=== PATIENT | female | born 1985 | race Caucasian/White ===

== ENCOUNTER → 2016-12-08 | Outpatient (CLI) | payer OTHER ==
[~2016-12-08] MED LIST: FISH1000 PO; METF10004 PO; PRED20TA PO; PRENTAB55 PO; PROAAER10; TESS100C PO; TOPA1TAB PO; ZITHTAB PO
[2016-12-08 16:19] LABS: BASO % 0.4 % (0.0-1.0); EOS # 0.2 K/mm3 (0.0-0.50); EOS % 2.1 % (0.0-3.0); LARGE UNSTAINED CELL # 0.1 K/mm3 (0.0-0.4); LARGE UNSTAINED CELL % 1.5 % (0.0-4.0); LYMPH # 2.3 K/mm3 (1.5-4.5); MEAN CORPUSCULAR HEMOGLOBIN 28.9 pg (27.0-33.0); MEAN CORPUSCULAR HGB CONC 34.9 g/dl (32.0-36.5); MEAN CORPUSCULAR VOLUME 82.9 fl (80.0-96.0); MONO # 0.3 K/mm3 (0.0-0.8); MONO % 4.3 % (0.0-5.0); NEUTROPHILS # 4.9 K/mm3 (1.8-7.7); NEUTROPHILS % 63.7 % (36.0-66.0); PLATELET COUNT, AUTOMATED 367 k/mm3 (150-450); RED CELL DISTRIBUTION WIDTH 13.8 % (11.5-14.5); WHITE BLOOD COUNT 7.8 K/mm3 (4.0-10.0)
[2016-12-08 16:32] LABS: ALBUMIN 3.4 GM/DL (3.2-5.2); ALKALINE PHOSPHATASE 83 U/L (45-117); ALT/SGPT 55 U/L (12-78); ANION GAP 10 MEQ/L (8-16); AST/SGOT 27 U/L (15-37); BILIRUBIN,TOTAL 0.2 MG/DL (0.2-1.0); BLOOD UREA NITROGEN 7 MG/DL (7-18); CALCIUM LEVEL 8.6 MG/DL (8.5-10.1); CARBON DIOXIDE LEVEL 26 MEQ/L (21-32); CHLORIDE LEVEL 104 MEQ/L (98-107); CREATININE FOR GFR 0.62 MG/DL (0.55-1.02); FREE T4 1.06 NG/DL (0.76-1.46); GLOMERULAR FILTRATION RATE > 60.0 (>60); GLUCOSE, FASTING 124 MG/DL (70-105); POTASSIUM SERUM 4.3 MEQ/L (3.5-5.1); SODIUM LEVEL 140 MEQ/L (136-145); TOTAL PROTEIN 6.8 GM/DL (6.4-8.2)
[2016-12-08 17:14] LABS: ERYTHROCYTE SEDIMENTATION RATE 37 mm/hr (0-20)
== END ==
LOC: M LAB 15:20
PROVIDERS: ATTEND Physician Assistant Medical
DX: R19.7 Diarrhea, unspecified (principal)

== ENCOUNTER → 2016-12-09 | Outpatient (REF) | payer OTHER | LOC: M LAB REF 10:05 | PROVIDERS: ATTEND Physician Assistant Medical | DX: R19.7 Diarrhea, unspecified (principal) ==

== ENCOUNTER → 2016-12-11 | Outpatient (CLI) | payer OTHER ==
[~2016-12-11] MED LIST changes: +E-Z-PAQUE 96% w/w SUSP 176GM BTL As Ordered ONE
--- NOTE | 2016-12-11 16:44 | REP ---
Small bowel follow-through The procedure was performed under the direct supervision of Dr. Barrientos. The images were reviewed with Dr. Barrientos. The acute care registered nurse film shows no organomegaly or pathological masses. The intestinal gas pattern is nonspecific. Liquid barium was administered and the barium column was followed through the small bowel to the level of the terminal ileum. Small bowel transit time is approximately 30 minutes . During fluoroscopy gentle palpation shows all loops are freely movable and pliable. There are no fixed or angulated loops. The small bowel mucosal pattern is normal in course and caliber. There is no transition to suggest a partial small bowel obstruction. Spot filming of the terminal ileum shows it to be unremarkable. Impression: Small bowel follow-through examination within normal limits. 1 minute and 2 seconds of fluoro time was utilized for this procedure. Reviewed by KIMBERLY Colindres 12/11/2016 04:24 PSigned by Devonte Barrientos MD 12/11/2016 04:35 P
== END ==
LOC: M RAD 09:47 → EDUNIT# 10:00
PROVIDERS: ATTEND Physician Assistant Medical
DX: R19.7 Diarrhea, unspecified (principal); R10.84 Generalized abdominal pain

== ENCOUNTER 2016-12-24 12:11 | Outpatient (CLI) | payer OTHER ==
[~2016-12-24] VITALS: Ht 162.6 cm; Wt 129.7 kg
[~2016-12-24 12:11] MED LIST changes: -E-Z-PAQUE 96% w/w SUSP 176GM BTL As Ordered ONE; -FISH1000 PO; +NS 1,000 ML IV ONE; -PRED20TA PO; -PROAAER10; -TESS100C PO; -ZITHTAB PO
[2016-12-24] MEDS ORDERED: LIDOCAINE 2% INJ 100 MG/5 ML SDV (FOR ANES.) As Ordered ONE ×2 (15:23→15:35)
[2016-12-24] MEDS ORDERED: PROPOFOL 200 MG/20 ML VIAL As Ordered ONE ×3 (15:23→15:38)
--- NOTE | 2016-12-24 15:34 | ROOR ---
Patient Name: Florence Calzada Procedure Date: 12/24/2016 3:22 PM Date of : 1985 Age: 31 Room: [facility] Gender: Female Note Status: Finalized Procedure: Upper GI endoscopy Indications: Abdominal pain Providers: Guero LAM MD Referring MD: KELLY MENDOZA MD Requesting Provider: Medicines: Monitored Anesthesia Care Complications: No immediate complications. Procedure: Pre-Anesthesia Assessment: - The heart rate, respiratory rate, oxygen saturations, blood pressure, adequacy of pulmonary ventilation, and response to care were monitored throughout the procedure. The Endoscope was introduced through the mouth, and advanced to the second part of duodenum. The upper GI endoscopy was accomplished without difficulty. The patient tolerated the procedure well. Findings: The esophagus was normal. The stomach was normal. The examined duodenum was normal. Impression: - Normal esophagus. - Normal stomach with a small (insignificant) hiatal hernia. - Normal examined duodenum. - No specimens collected. Recommendation: - Continue present medications. Guero Lam MD Guero LAM MD 12/24/2016 3:33:50 PM This report has been signed electronically. Number of Addenda: 0 Note Initiated On: 12/24/2016 3:22 PM Estimated Blood Loss: Estimated blood loss: none.
--- NOTE | 2016-12-24 15:52 | ROOR ---
Patient Name: Florence Calzada Procedure Date: 12/24/2016 3:23 PM Date of : 1985 Age: 31 Room: [facility] Gender: Female Note Status: Finalized Procedure: Colonoscopy Indications: Generalized abdominal pain, Clinically significant diarrhea of unexplained origin, Exclusion of Crohn's disease Providers: Guero LAM MD Referring MD: KELLY MENDOZA MD Requesting Provider: Medicines: Monitored Anesthesia Care Complications: No immediate complications. Procedure: Pre-Anesthesia Assessment: - The heart rate, respiratory rate, oxygen saturations, blood pressure, adequacy of pulmonary ventilation, and response to care were monitored throughout the procedure. The Colonoscope was introduced through the anus and advanced to 8 cm into the ileum. The colonoscopy was performed without difficulty. The patient tolerated the procedure well. The quality of the bowel preparation was good. Findings: The perianal and digital rectal examinations were normal. The terminal ileum contained a single erosion. This was biopsied with a cold forceps for histology. The entire examined colon appeared normal on direct and retroflexion views. Biopsies for histology were taken with a cold forceps from the entire colon for evaluation of microscopic colitis. Impression: - A single tiny erosion in the terminal ileum of dubious significance. Biopsied. - The entire examined colon is normal on direct and retroflexion views. - Biopsies were taken with a cold forceps from the entire colon for evaluation of microscopic colitis. - (Irritable Bowel Syndrome/IBS suspected.) Recommendation: - Await pathology results. - Telephone endoscopist for pathology results in 2 weeks. - Use Bentyl (dicyclomine) 20 mg PO QID 30 min AC. - (the script was sent to your pharmacy on file) Guero Lam MD Guero LAM MD 12/24/2016 3:52:30 PM This report has been signed electronically. Number of Addenda: 0 Note Initiated On: 12/24/2016 3:23 PM Estimated Blood Loss: Estimated blood loss: none.
[2016-12-24 16:10] VITALS: BP 158/66
== END 2016-12-24 16:28 | disposition home or self-care (01) ==
LOC: M OPP 12:11
PROVIDERS: ATTEND Internal Medicine Gastroenterology
DX: K50.10 Crohn's disease of large intestine without complications (principal); K44.9 Diaphragmatic hernia without obstruction or gangrene; I10 Essential (primary) hypertension; E11.9 Type 2 diabetes mellitus without complications; E28.2 Polycystic ovarian syndrome; G43.909 Migraine, unspecified, not intractable, without status migrainosus; R06.83 Snoring; Z79.899 Other long term (current) drug therapy; Z79.84 Long term (current) use of oral hypoglycemic drugs

== ENCOUNTER 2017-03-03 08:13 | Emergency (ER) | payer OTHER ==
[~2017-03-03 08:13] MED LIST changes: -NS 1,000 ML IV ONE
[2017-03-03] MEDS ORDERED: TESS100C PO (08:26)
[2017-03-03] MEDS ORDERED: FISH1000 PO (08:26)
[2017-03-03] MEDS ORDERED: methylPREDNISolone INJ 125 MG/2 ML VIAL (J2930) IV ONE (08:45)
[2017-03-03] MEDS ORDERED: IPRATROPIUM 0.5MG/ALBUTEROL 2.5MG INH SOL UD 3ML (DUONEB)(J7620) NEB ONE (08:45)
[2017-03-03] MEDS ORDERED: ALBUTEROL SULFATE 2.5 MG/0.5 ML INH NEB SOLN INH ONE (08:45)
--- NOTE | 2017-03-03 08:58 | ECGEPIP ---
Stationary ECG Study [facility] - ED Test Date: 2017-03-03 Pat Name: DEN ESTRADA Department: Room: - Gender: F Public Relations Representative: AF : 1985 Requested By: Amish Onofre Order Number: [id number] Reading MD: Jeffrey Bland Measurements Intervals [place] Rate: 93 P: 24 HI: 164 QRS: 7 QRSD: 89 T: -3 QT: 331 QTc: 413 Interpretive Statements SINUS RHYTHM NSTTW ABNORMALITIES POSSIBLE PRIOR INFERIOR INFARCT NO PRIORS Electronically Signed On 03-03-2017 8:58:09 EDT by Jeffrey Bland
[2017-03-03 09:21] LABS: BASO % 0.4 % (0.0-1.0); EOS # 0.2 10^3/uL (0.0-0.50); IMMATURE GRANULOCYTE % 0.5 % (0-0); LYMPH # 2.5 10^3/uL (1.5-4.5); LYMPH % 25.8 % (24.0-44.0); MEAN CORPUSCULAR HEMOGLOBIN 27.9 pg (27.0-33.0); MEAN CORPUSCULAR HGB CONC 34.3 g/dl (32.0-36.5); MEAN CORPUSCULAR VOLUME 81.1 fl (80.0-96.0); MONO # 0.4 10^3/uL (0.0-0.8); MONO % 4.5 % (0.0-5.0); NEUTROPHILS # 6.5 10^3/uL (1.8-7.7); NEUTROPHILS % 66.8 % (36.0-66.0); PLATELET COUNT, AUTOMATED 349 10^3/uL (150-450); RED CELL DISTRIBUTION WIDTH 14.2 % (11.5-14.5); WHITE BLOOD COUNT 9.7 10^3/uL (4.0-10.0)
[2017-03-03 09:24] LABS: ADD MANUAL DIFFER NO; DIFF SLIDE NUMBER 141
[2017-03-03 09:37] LABS: CONTROL LINE HCG INT CTR LINE PRESENT
[2017-03-03 09:46] LABS: ALBUMIN 3.4 GM/DL (3.2-5.2); ALBUMIN/GLOBULIN RATIO 0.87 (1.00-1.93); ALKALINE PHOSPHATASE 91 U/L (45-117); ALT/SGPT 58 U/L (12-78); ANION GAP 10 MEQ/L (8-16); AST/SGOT 25 U/L (15-37); BILIRUBIN,DIRECT < 0.1 MG/DL (0.0-0.2); BILIRUBIN,TOTAL 0.2 MG/DL (0.2-1.0); BLOOD UREA NITROGEN 8 MG/DL (7-18); CALCIUM LEVEL 8.6 MG/DL (8.5-10.1); CARBON DIOXIDE LEVEL 19 MEQ/L (21-32); CHLORIDE LEVEL 109 MEQ/L (98-107); CREATININE FOR GFR 0.77 MG/DL (0.55-1.02); GLOMERULAR FILTRATION RATE > 60.0 (>60); GLUCOSE, FASTING 142 MG/DL (70-105); POTASSIUM SERUM 3.6 MEQ/L (3.5-5.1); SODIUM LEVEL 138 MEQ/L (136-145); TOTAL PROTEIN 7.3 GM/DL (6.4-8.2)
[2017-03-03] MEDS ORDERED: NS 1,000 ML IV ONE (10:00)
--- NOTE | 2017-03-03 10:31 | REP ---
PA and lateral chest: There are no comparisons. The lung valdez are clear. The cardiac size is normal The ariella, mediastinum, and bony thorax are unremarkable. Impression: Negative PA and lateral chest. Signed by Jake Navarro MD 03/03/2017 10:23 A
[2017-03-03] MEDS ORDERED: ZITHTAB PO (10:40)
[2017-03-03] MEDS ORDERED: PRED20TA PO (10:40)
[2017-03-03 10:55] VITALS: BP 130/69
== END 2017-03-03 10:57 | disposition home or self-care (01) ==
LOC: M ED 08:13
DX: J40 Bronchitis, not specified as acute or chronic (principal); I10 Essential (primary) hypertension; F41.9 Anxiety disorder, unspecified; Z79.899 Other long term (current) drug therapy; Z88.8 Allergy status to other drugs, medicaments and biological substances; Z87.891 Personal history of nicotine dependence
CPT/HCPCS: 71020; 80048; 80076; 82550; 82553; 83880; 84703; 85025; 85379; 87040; 87077; 87186; 87798; 87804; 93005; 93041; 94640; 94760; 96374; 99284; J2930

== ENCOUNTER 2017-03-08 11:59 | Emergency (ER) | payer OTHER ==
[~2017-03-08] VITALS: Ht 162.6 cm; Wt 125.0 kg
[~2017-03-08 11:59] MED LIST changes: +FISH1000 PO; +PRED20TA PO; +TESS100C PO; +ZITHTAB PO
[2017-03-08] MEDS ORDERED: PROAAER10 (12:17)
[2017-03-08] MEDS ORDERED: LORazepam 1 MG TAB PO STA (12:36)
[2017-03-08] MEDS: IPRATROPIUM 0.5MG/ALBUTEROL 2.5MG INH SOL UD 3ML (DUONEB)(J7620) NEB SCH ×3 (13:02→13:04)
[2017-03-08 13:31] LABS: ABG HCO3 17.9 MEQ/L (22.0-26.0); ABG PARTIAL PRESSURE CO2 25.4 mmHg (35.0-45.0); ABG PARTIAL PRESSURE O2 242.2 mmHg (75.0-100.0); ABG STANDARD HCO3 21.2 MEQ/L (22.0-26.0); ABG TOTAL CO2 18.7 MEQ/L (22.0-29.0); ABG pH (ARTERIAL) 7.467 UNITS (7.350-7.450)
[2017-03-08] MEDS ORDERED: LORazepam 2 MG/ML VIAL (J2060) IV STA (14:33)
[2017-03-08] MEDS ORDERED: ISOVUE-370 76% 100ML VIAL (Q9967) As Ordered ONE (14:39)
[2017-03-08] MEDS ORDERED: KETOROLAC 30 MG/ML VIAL (J1885) IV ONE (14:45)
--- NOTE | 2017-03-08 16:20 | REP ---
CT ANGIOGRAM CHEST: 03/08/2017. Comparison: Chest x-ray 03/03/2017. Technique: The patient received a bolus of Isovue 370, 75 ml with our pulmonary angiogram protocol. Clinical history: Pleuritic chest pain in a 31-year-old female with diabetes. Findings: Helical scanning through the chest shows the lung valdez well inflated. I see no pleural thickening, calcified pleural plaque or pleural-based mass. No effusion. There is no pneumothorax or pneumomediastinum. There is no pulmonary nodule, acute infiltrate or atelectasis. Heart is not enlarged. There is no pericardial thickening or effusion. The aorta is without aneurysm or dissection. I see no pathologic sized mediastinal or hilar adenopathy. The main, right and left pulmonary arteries are without filling defects. Lobar and segmental arteries are also without filling defects or vessel cutoff. Subsegmental arteries are not well visualized on this study. No pathologic sized mediastinal or hilar adenopathy. There are fat replaced axillary nodes, which are not enlarged. No supraclavicular mass. Thyroid lobes unremarkable. Bone windows show sternum, manubrium, clavicles, AC joints, glenohumeral joints, humeral heads, scapulae, ribs and thoracic spine without compression deformity or destructive lesion. Posterior elements intact. In the upper abdomen, fatty change noted in the liver. The spleen seen only in part, but is not enlarged. That portion of liver visible does not suggest gross hepatomegaly, but again only seen in part. Adrenal glands intact. The body and tail of the pancreas intact. Only the upper pole of the left kidney seen and unremarkable. No hiatal hernia. Impression: 1. There is no CT evidence of pulmonary thromboembolism, effusion, infiltrate, atelectasis, pneumothorax or pneumomediastinum. 2. No pathologic sized mediastinal or hilar adenopathy. There is no aortic aneurysm or dissection. 3. The bony chest was unremarkable. 4. Fatty liver change but the upper abdominal region otherwise unremarkable. Signed by Aj Marcum MD 03/08/2017 05:26 P
[2017-03-08] MEDS ORDERED: TESS100C PO ×2 (17:21→17:36)
[2017-03-08 17:39] VITALS: BP 150/89
== END 2017-03-08 17:40 | disposition home or self-care (01) ==
LOC: M ED 11:59 → EDBD 11:59 → EDSEX 11:59 → M ED 17:40
DX: R05 Cough (principal); F41.9 Anxiety disorder, unspecified; I10 Essential (primary) hypertension; Z79.899 Other long term (current) drug therapy; Z88.8 Allergy status to other drugs, medicaments and biological substances; F17.210 Nicotine dependence, cigarettes, uncomplicated
CPT/HCPCS: 36600; 71275; 82803; 87486; 87581; 87633; 87798; 94640; 96374; 96375; 99284; J1885; J2060; Q9967

== ENCOUNTER 2017-10-19 18:42 | Emergency (ER) | payer OTHER | END 2017-10-19 20:40 | disposition left against medical advice (07) | LOC: M ED 18:42 | DX: Z53.29 Procedure and treatment not carried out because of patient's decision for other reasons (principal) ==

== ENCOUNTER 2018-05-31 11:44 | Emergency (ER) | payer OTHER ==
[~2018-05-31] VITALS: Ht 162.6 cm; Wt 131.7 kg
[~2018-05-31 11:44] MED LIST changes: +PROAAER10
[2018-05-31] MEDS ORDERED: ADV500INH INH (11:53)
[2018-05-31] MEDS ORDERED: FROV2.5T4 PO (11:53)
[2018-05-31] MEDS ORDERED: OMEP20CA3 PO (11:53)
[2018-05-31] MEDS ORDERED: LISINOPRIL-HCTZ (11:54)
[2018-05-31] MEDS ORDERED: FEXO180T58 (11:54)
[2018-05-31] MEDS ORDERED: ONDANSETRON 4MG/2ML VIAL (J2405) IV ONE (12:15)
[2018-05-31] MEDS: MORPHINE 4 MG/ML 1ML VIAL/SYRINGE (J2270) IV PRN ×2 (12:25→13:18)
[2018-05-31 12:31] LABS: BASO # 0.1 10^3/uL (0.0-0.2); BASO % 0.5 % (0.0-1.0); EOS # 0.2 10^3/uL (0.0-0.50); EOS % 1.4 % (0.0-3.0); HEMATOCRIT 38.7 % (36.0-47.0); HEMOGLOBIN 13.3 g/dl (12.0-15.5); LYMPH # 2.5 10^3/uL (1.5-4.5); LYMPH % 23.8 % (24.0-44.0); MEAN CORPUSCULAR HEMOGLOBIN 28.9 pg (27.0-33.0); MEAN CORPUSCULAR HGB CONC 34.4 g/dl (32.0-36.5); MEAN CORPUSCULAR VOLUME 83.9 fl (80.0-96.0); MONO # 0.5 10^3/uL (0.0-0.8); MONO % 4.9 % (0.0-5.0); NEUTROPHILS # 7.2 10^3/uL (1.8-7.7); NEUTROPHILS % 68.7 % (36.0-66.0); PLATELET COUNT, AUTOMATED 370 10^3/uL (150-450); RED BLOOD COUNT 4.61 10^6/uL (4.00-5.40); WHITE BLOOD COUNT 10.5 10^3/uL (4.0-10.0)
[2018-05-31 12:42] LABS: BILIRUBIN, URINE MANUAL NEGATIVE (NEGATIVE); GLUCOSE, URINE (UA) MANUAL NEGATIVE (NEGATIVE); KETONE, URINE MANUAL NEGATIVE (NEGATIVE); UROBILINOGEN, URINE MANUAL NORMAL (NORMAL)
[2018-05-31 12:49] LABS: BACTERIA, URINE NONE SEEN; HYALINE CAST, URINE NONE SEEN /lpf (0-1); RBC, URINE 30-40 /hpf (0-3); SQUAMOUS EPITHELIAL CELL URINE SMALL AMOUNT /hpf (SMALL AMT)
[2018-05-31 13:02] LABS: HCG, SERUM QUALITATIVE NEGATIVE (NEGATIVE)
[2018-05-31 13:11] LABS: ALBUMIN 3.7 GM/DL (3.2-5.2); ALT/SGPT 73 U/L (12-78); BILIRUBIN,DIRECT < 0.1 MG/DL (0.0-0.2); BILIRUBIN,TOTAL 0.2 MG/DL (0.2-1.0); BLOOD UREA NITROGEN 11 MG/DL (7-18); CALCIUM LEVEL 9.5 MG/DL (8.5-10.1); CARBON DIOXIDE LEVEL 21 MEQ/L (21-32); CHLORIDE LEVEL 106 MEQ/L (98-107); CREATININE FOR GFR 0.74 MG/DL (0.55-1.30); GLOMERULAR FILTRATION RATE > 60.0 (>60); GLUCOSE, FASTING 161 MG/DL (70-100); LIPASE 191 U/L (73-393); POTASSIUM SERUM 3.8 MEQ/L (3.5-5.1); SODIUM LEVEL 138 MEQ/L (136-145); TOTAL PROTEIN 7.2 GM/DL (6.4-8.2)
[2018-05-31] MEDS ORDERED: ISOVUE-370 76% 100ML VIAL (Q9967) As Ordered ONE (13:32)
--- NOTE | 2018-05-31 14:14 | REP ---
CT ABDOMEN AND PELVIS WITH IV BUT WITHOUT ORAL CONTRAST: HISTORY: Right lower quadrant pain. Question incarcerated hernia. CT CONTRAST DOSE: 100 mL of intravenous Isovue [address] FINDINGS: Preliminary digital box toe cutter radiograph demonstrates an unremarkable bowel gas pattern. An IUD is noted in the central pelvis. On axial CT images, the lung bases are clear. There is moderate to marked diffuse fatty infiltration of the liver. No focal liver mass lesion is appreciated. There are areas of fat sparing near the gallbladder. A tiny accessory splenule is noted adjacent to the pancreatic tail. The spleen is otherwise normal in size and texture. No adrenal lesion is seen. No pancreatic abnormality is observed. There is evidence of a descending duodenal diverticulum. No retroperitoneal mass or adenopathy is seen. There is an intrarenal calculus in the lower pole of the left kidney which measures 10 mm. No hydronephrosis is seen. There is some renal parenchymal scarring along the mid pole of the left kidney with adjacent parenchymal focal calcification. There is no evidence of hydronephrosis or intrarenal calculus on the right. The kidneys are otherwise unremarkable. The appendix is surgically absent. An IUD is seen in good position in the uterus. No ovarian or uterine abnormality is seen. No pelvic adenopathy is seen. No significant abdominal wall defect is seen. No bony destructive lesion is noted. IMPRESSION: Intrarenal nephrolithiasis lower pole left kidney without hydronephrosis. Focal scarring left mid kidney. Moderate to marked diffuse fatty infiltration of the liver. IUD in place in good position in the uterus. Post appendectomy. No acute intra-abdominal or pelvic abnormality seen. Electronically Signed by Devonte Barrientos MD 05/31/2018 04:42 P
[2018-05-31 14:41] VITALS: BP 129/76
== END 2018-05-31 14:42 | disposition home or self-care (01) ==
LOC: M ED 11:44
DX: R10.31 Right lower quadrant pain (principal); R11.0 Nausea; I10 Essential (primary) hypertension; K58.9 Irritable bowel syndrome, unspecified; F41.9 Anxiety disorder, unspecified; R51 Headache; Z87.891 Personal history of nicotine dependence; Z88.8 Allergy status to other drugs, medicaments and biological substances; Z79.899 Other long term (current) drug therapy; Z79.84 Long term (current) use of oral hypoglycemic drugs; Z79.51 Long term (current) use of inhaled steroids
CPT/HCPCS: 74177; 80048; 80076; 81000; 83690; 84703; 85025; 96374; 96375; 96376; 99284; J2270; J2405; Q9967

== ENCOUNTER 2019-04-04 08:14 | Day surgery (SDC) | payer OTHER ==
[~2019-04-04] VITALS: Ht 162.6 cm; Wt 86.2 kg
[~2019-04-04 08:14] MED LIST changes: +ADV500INH INH; +CYAN100050 PO; +FEXO180T58 PO; +FROV2.5T4 PO; +LIDOCAINE 2% INJ 100 MG/5 ML SDV (FOR ANES.) As Ordered ONE; +LISINOPRIL-HCTZ; +LR 1,000 ML IV ONE; +MIDAZOLAM INJ 2 MG/2 ML VIAL (J2250) As Ordered ONE; +OMEP20CA4 PO; +OMEP40CA97 PO; +ONE-1TAB PO; +PROPOFOL 200 MG/20 ML VIAL As Ordered ONE; +fentaNYL 100 MCG/2 ML INJECTION (J3010) As Ordered ONE
[2019-04-04 08:54] LABS: HEMATOCRIT 40.5 % (36.0-47.0); HEMOGLOBIN 13.8 g/dl (12.0-15.5)
[2019-04-04] MEDS ORDERED: LIDOCAINE W/EPINEPHRINE 1% 20ML VIAL As Ordered ONE (09:01)
[2019-04-04] MEDS ORDERED: IODINE STRONG SOLN 15 ML BTL As Ordered ONE (09:01)
[2019-04-04 09:13] LABS: HCG, SERUM QUALITATIVE NEGATIVE (NEGATIVE)
[2019-04-04] MEDS ORDERED: METOCLOPRAMIDE INJ 10MG/2ML VIAL (J2765) As Ordered ONE (09:58)
[2019-04-04] MEDS ORDERED: KETOROLAC 60 MG/2 ML VIAL (J1885) As Ordered ONE (09:58)
[2019-04-04] MEDS ORDERED: ONDANSETRON 4MG/2ML VIAL (J2405) As Ordered ONE (09:58)
[2019-04-04] MEDS ORDERED: METOCLOPRAMIDE INJ 10MG/2ML VIAL (J2765) IV PRN (11:15)
[2019-04-04] MEDS ORDERED: fentaNYL 100 MCG/2 ML INJECTION (J3010) IV PRN (11:15)
[2019-04-04] MEDS ORDERED: oxyCODONE 5MG TAB PO PRN (11:15)
[2019-04-04] MEDS ORDERED: MEPERIDINE INJ 25 MG/ML VIAL (J2175) IV PRN (11:15)
[2019-04-04] MEDS ORDERED: LR 1,000 ML IV SCH (11:15)
[2019-04-04] MEDS ORDERED: ONDANSETRON 4MG/2ML VIAL (J2405) IV PRN (11:15)
--- NOTE | 2019-04-04 11:37 | RO ---
DATE OF OPERATION: 04/04/2019 STAFF SURGEON: Karissa Parada MD, clinical service gynecology [employer]CE[employer] LIFEGUARD SPECIALIST: INDICATIONS FOR OPERATION: Florence is a 33-year-old G9, P2-0-7-2 who had a history of prior normal Pap smears with positive human papillomavirus (HPV) testing. On colposcopy recently, she was noted to have a high-grade squamous intraepithelial lesion, high-grade squamous intraepithelial lesion (HGSIL), and she was counseled regarding treatment of the lesion so that there is no further progression. Given her level in anxiety, she requested that the procedure be done in the operating room, which was also a good idea for the patient given that her anatomy made the procedure more prudent to be done in the operating room, given that her cervix was rather large. 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 MATERIAL FORWARDED TO THE LABORATORY FOR EXAMINATION: Four specimens: 1. Right LEEP. 2. Left LEEP. 3. Deep LEEP superior. 4. Deep LEEP inferior. INFECTION CLASSIFICATION: 2. ESTIMATED BLOOD LOSS: 5 mL. INTRAVENOUS (IV) FLUIDS: 700 mL of lactated Ringer. URINE OUTPUT: Not measured. OPERATION PERFORMED: Loop electrosurgical excision procedure (LEEP). DESCRIPTION OF OPERATION: After obtaining informed consent, the patient was taken to the operating room, where she underwent general anesthesia, and she was placed in low lithotomy position. Perineum and vagina were prepped and draped in sterile fashion. A coated speculum was inserted into the vagina. There was good visualization of the cervix after the sidewall retractor was also placed within the vagina surrounding the cervix. Her cervix notably is rather large. Lugol solution was placed over the surface of the cervix, and there was a nonstaining portion in the center noted. 10 mL of 1% lidocaine with epinephrine was injected for an intracervical block. The LEEP was then completed in four passes. She had Mirena strings present for her Mirena intrauterine device (IUD), and I took great care to not contact the strings with the cautery during the procedure so that her IUD would still be in place with good length of the strings. The four passes of the LEEP were as follows: right LEEP, left LEEP, deep superior LEEP, and deep inferior LEEP. Then, cautery was applied to the LEEP bed using a rollerball, and there was complete hemostasis. Monsel solution was applied afterwards, and I inspected the strings and noted that they were still intact. The patient tolerated the procedure well. Specimens were sent to pathology. Everything was removed from the vagina to include the sidewall retractor and the speculum. The patient was awakened from anesthesia and transferred to the recovery room in good condition. All counts were correct times two. Time-out had been performed prior to the procedure, and the team was in agreement.
[2019-04-04 11:45] VITALS: BP 142/91
== END 2019-04-04 11:57 | disposition home or self-care (01) ==
LOC: M SDC 08:14
PROVIDERS: ATTEND Obstetrics & Gynecology
DX: N87.1 Moderate cervical dysplasia (principal); D06.0 Carcinoma in situ of endocervix; B97.7 Papillomavirus as the cause of diseases classified elsewhere; G43.909 Migraine, unspecified, not intractable, without status migrainosus; Z98.84 Bariatric surgery status; L40.50 Arthropathic psoriasis, unspecified; F41.9 Anxiety disorder, unspecified; E11.9 Type 2 diabetes mellitus without complications; E28.2 Polycystic ovarian syndrome; Z87.440 Personal history of urinary (tract) infections; F17.290 Nicotine dependence, other tobacco product, uncomplicated; Z88.8 Allergy status to other drugs, medicaments and biological substances; Z79.899 Other long term (current) drug therapy
CPT/HCPCS: 36415; 57522; 84703; 85014; 85018; 86850; 86900; 86901; 88307; J1885; J2250; J2405; J2765; J3010

== ENCOUNTER 2020-07-26 14:52 | Emergency (ER) | payer OTHER ==
[~2020-07-26] VITALS: Ht 162.6 cm; Wt 76.9 kg
[~2020-07-26 14:52] MED LIST changes: -LIDOCAINE 2% INJ 100 MG/5 ML SDV (FOR ANES.) As Ordered ONE; -LR 1,000 ML IV ONE; -MIDAZOLAM INJ 2 MG/2 ML VIAL (J2250) As Ordered ONE; +OMEP1CAP73 PO; -OMEP20CA4 PO; -PROPOFOL 200 MG/20 ML VIAL As Ordered ONE; -fentaNYL 100 MCG/2 ML INJECTION (J3010) As Ordered ONE
[2020-07-26 14:53] VITALS: BP 143/94
[2020-07-26 17:10] LABS: BASO % 0.4 % (0.0-1.0); EOS # 0.1 10^3/uL (0.0-0.5); EOS % 1.1 % (0.0-3.0); HEMATOCRIT 39.6 % (36.0-47.0); HEMOGLOBIN 13.8 g/dl (12.0-15.5); LYMPH # 2.7 10^3/uL (1.5-5.0); LYMPH % 30.3 % (24.0-44.0); MEAN CORPUSCULAR HEMOGLOBIN 30.2 pg (27.0-33.0); MEAN CORPUSCULAR HGB CONC 34.8 g/dl (32.0-36.5); MEAN CORPUSCULAR VOLUME 86.7 fl (80.0-96.0); MONO # 0.4 10^3/uL (0.0-0.8); MONO % 4.8 % (2.0-8.0); NEUTROPHILS # 5.6 10^3/uL (1.5-8.5); NEUTROPHILS % 63.1 % (36.0-66.0); PLATELET COUNT, AUTOMATED 320 10^3/uL (150-450); RED BLOOD COUNT 4.57 10^6/uL (4.00-5.40); WHITE BLOOD COUNT 8.9 10^3/uL (4.0-10.0)
[2020-07-26] MEDS ORDERED: HYDR-3713 PO (17:28)
== END 2020-07-26 17:38 | disposition home or self-care (01) ==
LOC: M ED 14:52
DX: N64.4 Mastodynia (principal); E11.9 Type 2 diabetes mellitus without complications; Z98.84 Bariatric surgery status; Z79.899 Other long term (current) drug therapy; Z88.8 Allergy status to other drugs, medicaments and biological substances; F17.210 Nicotine dependence, cigarettes, uncomplicated

== ENCOUNTER → 2020-08-01 | Outpatient (CLI) | payer OTHER ==
[~2020-08-01] MED LIST changes: +HYDR-3713 PO
--- NOTE | 2020-08-01 14:22 | REPMRS ---
Patient History The patient states she had a clinical breast exam in July 2020. Taking hormonal contraceptives for 2 years 3 months. Diagnostic Bilateral Mammo: August 01, 2020 - Exam #: [id number] Bilateral CC and MLO view(s) were taken. Technologist: Yamilet Ambriz, Technologist No prior studies available for comparison. FINDINGS: There are scattered fibroglandular densities. The Volpara volumetric breast density category is: B. There is no evidence of dominant mass, architectural distortion, or grouped microcalcification typical of malignancy. 3-D tomosynthesis shows no additional findings. Assessment: BI-RADS/ACR category 1 mammogram. Negative Mammogram. Recommendation Routine screening mammogram of both breasts in 1 year (for women over age 40). This patient's [facility] Lifetime Breast Cancer RIsk is estimated at 10.2 %. This mammogram was interpreted with the aid of an FDA-approved computer-aided dectection system. Electronically Signed By: Jalen Barrientos MD 08/01/20 [id number]
== END ==
LOC: M WHC 11:18
PROVIDERS: ATTEND Nurse Practitioner Women's Health
DX: Z12.31 Encounter for screening mammogram for malignant neoplasm of breast (principal); Z79.3 Long term (current) use of hormonal contraceptives
CPT/HCPCS: 77066; G0279

== ENCOUNTER 2020-10-22 19:48 | Emergency (ER) | payer OTHER ==
[~2020-10-22] VITALS: Ht 162.6 cm; Wt 72.8 kg
--- NOTE | 2020-10-22 23:58 | REPVR ---
PROCEDURE INFORMATION: Exam: US Duplex Left Lower Extremity Veins, Limited Exam date and time: 10/22/2020 11:32 PM Age: 35 years old Clinical indication: Pain; Leg, lower; Left; Additional info: Swelling/pain TECHNIQUE: Imaging protocol: Real-time Duplex ultrasound of the Left Lower Extremity with 2-D landers scale, color Doppler flow and spectral waveform analysis with image documentation. Limited exam focused on the left lower extremity veins. COMPARISON: No relevant prior studies available. FINDINGS: Left deep veins: Unremarkable. The common femoral, femoral, proximal profunda femoral and popliteal veins are patent without thrombus. Normal Doppler waveforms. Normal compressibility and/or augmentation response. Left superficial veins: Unremarkable. Saphenofemoral junction is patent without thrombus. Soft tissues: Unremarkable. IMPRESSION: No evidence of deep vein thrombosis. Electronically signed by: Asif Gill On 10/22/2020 23:58:22 PM
--- NOTE | 2020-10-23 | REPVR ---
PROCEDURE INFORMATION: Exam: US Left Non-Vascular Joint or Other Extremity Structure Exam date and time: 10/22/2020 11:32 PM Age: 35 years old Clinical indication: Pain; Lower leg; Left; Additional info: Swelling/pain lower anterior levine with discoloration TECHNIQUE: Imaging protocol: Left US joint or other nonvascular extremity structure or structures. Real-time ultrasound with image documentation. Limited study. Exam focused on the lower extremity in the region of clinical interest. COMPARISON: US Duplex, Ext,LOWER veins,unilat LEFT 10/22/2020 11:17 PM FINDINGS: Soft tissues: Unremarkable. No loculated collections. IMPRESSION: Unremarkable US. Electronically signed by: Asif Gill On 10/23/2020 00:00:19 AM
[2020-10-23] MEDS ORDERED: NORCO 5/325MG TABLET (BULK FOR ED) PO ONE (00:30)
[2020-10-23 00:41] VITALS: BP 140/86
== END 2020-10-23 00:59 | disposition home or self-care (01) ==
LOC: M ED 19:48
DX: R22.42 Localized swelling, mass and lump, left lower limb (principal); M25.572 Pain in left ankle and joints of left foot; E11.9 Type 2 diabetes mellitus without complications; I10 Essential (primary) hypertension; F41.9 Anxiety disorder, unspecified; K58.9 Irritable bowel syndrome, unspecified; Z79.899 Other long term (current) drug therapy; Z88.8 Allergy status to other drugs, medicaments and biological substances; Z77.098 Contact with and (suspected) exposure to other hazardous, chiefly nonmedicinal, chemicals

== ENCOUNTER → 2020-11-06 | Outpatient (CLI) | payer OTHER ==
--- NOTE | 2020-11-06 14:57 | REP ---
INDICATION: SOFT TISSUE INJURY. COMPARISON: None. TECHNIQUE: Multiple sequences obtained in the axial, coronal and sagittal planes. FINDINGS: The left tibia and fibula demonstrate no abnormal bone marrow signal. There is no bone marrow edema or occult fracture. There is no definite bone lesion. Soft tissue structures demonstrate no edema or other abnormal signal. There is no cyst or fluid collection. No evidence of muscle or tendon tear. IMPRESSION: Negative MRI left lower leg. <Electronically signed by Jake Alex > 11/06/20 [id number]
== END ==
LOC: M PLARAD 09:26
PROVIDERS: ATTEND Student in an Organized Health Care Education/Training Program
DX: M79.9 Soft tissue disorder, unspecified (principal)

== ENCOUNTER 2020-11-19 08:30 | Emergency (ER) | payer OTHER ==
[~2020-11-19] VITALS: Ht 162.6 cm; Wt 71.3 kg
[~2020-11-19 08:30] MED LIST changes: +OMEP40CA4 PO; -OMEP40CA97 PO
[2020-11-19] MEDS ORDERED: NS 1,000 ML IV ONE (08:45)
[2020-11-19] MEDS ORDERED: KETOROLAC 30 MG/ML 1ML VIAL IV ONE (09:25)
[2020-11-19 09:33] LABS: HEMATOCRIT 37.5 % (36.0-47.0); HEMOGLOBIN 13.1 g/dl (12.0-15.5); MEAN CORPUSCULAR HEMOGLOBIN 30.8 pg (27.0-33.0); MEAN CORPUSCULAR HGB CONC 34.9 g/dl (32.0-36.5); PLATELET COUNT, AUTOMATED 311 10^3/uL (150-450); RED BLOOD COUNT 4.26 10^6/uL (4.00-5.40); WHITE BLOOD COUNT 4.7 10^3/uL (4.0-10.0)
[2020-11-19 09:59] LABS: ANISOCYTOSIS 1+; ATYPICAL LYMPH 6 % (0-5); LYMPHOCYTES 44 % (16-44); MONOCYTES 2 % (0-5); NEUTROPHILS 47 % (28-66); PLATELET ESTIMATE NORMAL (NORMAL)
[2020-11-19 10:48] LABS: ALBUMIN 3.8 GM/DL (3.2-5.2); ALT/SGPT 22 U/L (12-78); BILIRUBIN,DIRECT < 0.1 MG/DL (0.0-0.2); BILIRUBIN,TOTAL 0.4 MG/DL (0.2-1.0); BLOOD UREA NITROGEN 13 MG/DL (7-18); CALCIUM LEVEL 8.6 MG/DL (8.5-10.1); CARBON DIOXIDE LEVEL 21 MEQ/L (21-32); CHLORIDE LEVEL 114 MEQ/L (98-107); CREATININE FOR GFR 0.75 MG/DL (0.55-1.30); GLOMERULAR FILTRATION RATE > 60.0 (>60); GLUCOSE, FASTING 95 MG/DL (70-100); LIPASE 171 U/L (73-393); SODIUM LEVEL 141 MEQ/L (136-145); TOTAL PROTEIN 6.6 GM/DL (6.4-8.2)
--- NOTE | 2020-11-19 12:07 | REP ---
INDICATION: flank pain COMPARISON: 05/31/2018 TECHNIQUE: Axial noncontrast images from the lung bases to the pubic symphysis with coronal and sagittal reformations. This CT examination was performed using the following dose reduction techniques: Automated exposure control, adjustment of mA and/or kv according to the patient's size, and use of iterative reconstruction technique. FINDINGS: Lung bases are clear. Visualized heart and pericardium normal. Liver, spleen, pancreas, gallbladder, bilateral adrenal glands and kidneys are normal. The patient appears to be status post gastric bypass surgery and prior appendectomy. No bowel obstruction or acute inflammatory process. Scattered colonic diverticula noted without acute diverticulitis. Stable 1 cm fat containing periumbilical hernia. Pelvis demonstrates normal bladder and age-appropriate uterus/adnexa with IUD in satisfactory position. No ascites. No free air. No adenopathy. No focal inflammatory stranding. Abdominal aorta without aneurysm. Musculoskeletal structures are intact and without acute osseous abnormality. IMPRESSION: No acute abdominopelvic pathology appreciated. <Electronically signed by Milton Banerjee > 11/19/20 [id number]
[2020-11-19] MEDS ORDERED: oxyCODONE 5MG TAB PO ONE (12:45)
[2020-11-19] MEDS ORDERED: CYCLOBENZAPRINE 5MG TABLET PO ONE (12:45)
[2020-11-19] MEDS ORDERED: HYDR-3715 PO (14:41)
[2020-11-19] MEDS ORDERED: CYCL5TAB PO (14:41)
[2020-11-19 14:55] VITALS: BP 117/64
== END 2020-11-19 15:05 | disposition home or self-care (01) ==
LOC: M ED 08:30
DX: R10.9 Unspecified abdominal pain (principal); E11.9 Type 2 diabetes mellitus without complications; I10 Essential (primary) hypertension; R51.9 Headache, unspecified; K58.9 Irritable bowel syndrome, unspecified; Z98.84 Bariatric surgery status; F17.290 Nicotine dependence, other tobacco product, uncomplicated; Z79.899 Other long term (current) drug therapy; Z88.6 Allergy status to analgesic agent; Z88.8 Allergy status to other drugs, medicaments and biological substances
CPT/HCPCS: 74176; 80048; 80076; 81001; 83690; 84702; 85025; 93041; 96361; 96374; 99284; J1885

== ENCOUNTER → 2021-12-25 | Outpatient (CLI) | payer OTHER ==
[~2021-12-25] MED LIST changes: +CYCL5TAB PO; +FEXO-117 PO; -FEXO180T58 PO; +HYDR-3715 PO
== END ==
LOC: M EKG 09:38
PROVIDERS: ATTEND Registered Nurse
DX: E11.9 Type 2 diabetes mellitus without complications (principal); R42 Dizziness and giddiness; Z3A.20 20 weeks gestation of pregnancy

== ENCOUNTER 2022-01-04 17:30 | Outpatient (CLI) | payer OTHER ==
[~2022-01-04] VITALS: Ht 162.6 cm; Wt 76.2 kg
[2022-01-04 17:57] VITALS: BP 107/58
[2022-01-04] MEDS ORDERED: LR 1,000 ML IV ONE (18:10)
[2022-01-04] MEDS ORDERED: ACETAMINOPHEN 500 MG TAB PO ONE (18:10)
[2022-01-04] MEDS ORDERED: SING4CHW9 PO (18:16)
[2022-01-04] MEDS ORDERED: TOPA200T7 PO (18:16)
[2022-01-04] MEDS ORDERED: HOME MED LIST COMPLETE! XX SCH (18:40)
[2022-01-04 18:55] LABS: HEMATOCRIT 30.6 % (36.0-47.0); HEMOGLOBIN 10.8 g/dl (12.0-15.5); MEAN CORPUSCULAR HEMOGLOBIN 32.7 pg (27.0-33.0); MEAN CORPUSCULAR HGB CONC 35.3 g/dl (32.0-36.5); MEAN CORPUSCULAR VOLUME 92.7 fl (80.0-96.0); PLATELET COUNT, AUTOMATED 242 10^3/uL (150-450); WHITE BLOOD COUNT 18.9 10^3/uL (4.0-10.0)
[2022-01-04 19:11] LABS: APPEARANCE, URINE MANUAL CLEAR (CLEAR); COLOR, URINE MANUAL LT YELLOW (YELLOW)
[2022-01-04 19:12] LABS: BILIRUBIN, URINE MANUAL NEGATIVE (NEGATIVE); GLUCOSE, URINE (UA) MANUAL NEGATIVE (NEGATIVE); KETONE, URINE MANUAL NEGATIVE (NEGATIVE); NITRITE, URINE MANUAL NEGATIVE (NEGATIVE); PROTEIN, URINE MANUAL TRACE mg/dL (NEGATIVE); SPECIFIC GRAVITY,URINE MANUAL 1.005 (1.002-1.035); UROBILINOGEN, URINE MANUAL NORMAL (NORMAL)
[2022-01-04 19:13] LABS: BLOOD URINE MANUAL POSITIVE (NEGATIVE); LEUKOCYTE ESTERASE, URINE MAN TRACE (NEGATIVE)
[2022-01-04 19:13] LABS: BLOOD UREA NITROGEN 7 MG/DL (7-18); CALCIUM LEVEL 8.2 MG/DL (8.5-10.1); CARBON DIOXIDE LEVEL 17 MEQ/L (21-32); CHLORIDE LEVEL 110 MEQ/L (98-107); CREATININE FOR GFR 0.62 MG/DL (0.55-1.30); GLOMERULAR FILTRATION RATE > 60.0 (>60); GLUCOSE, FASTING 64 MG/DL (70-100); POTASSIUM SERUM 3.6 MEQ/L (3.5-5.1); SODIUM LEVEL 135 MEQ/L (136-145)
[2022-01-04 19:14] LABS: ALBUMIN 2.8 GM/DL (3.2-5.2); ALT/SGPT 11 U/L (12-78); BILIRUBIN,TOTAL 0.4 MG/DL (0.2-1.0); TOTAL PROTEIN 6.1 GM/DL (6.4-8.2)
[2022-01-04 19:21] LABS: BACTERIA, URINE NONE SEEN; HYALINE CAST, URINE NONE SEEN /lpf (0-1); SQUAMOUS EPITHELIAL CELL URINE MOD AMOUNT /hpf (SMALL AMT)
[2022-01-04] MEDS: LR 1,000 ML IV SCH (19:42)
[2022-01-04] MEDS ORDERED: oxyCODONE 5MG TAB PO ONE (20:00)
[2022-01-04] MEDS: cefTRIAXone SOD 1 GM in D5W MINI-BAG PLUS 50 ML IV SCH (20:26)
[2022-01-04 23:51] VITALS: BP 118/57
[2022-01-05] VITALS (16 sets, daily range): BP systolic 86–134; BP diastolic 50–65
[2022-01-05] MEDS ORDERED: MORPHINE 10 MG/ML 1ML VIAL As Ordered ONE (00:15)
[2022-01-05] MEDS: ACETAMINOPHEN 500 MG TAB PO SCH ×4 (00:32→18:25)
[2022-01-05] MEDS: MORPHINE 2 MG/ML 1ML VIAL IV PRN ×3 (00:32→09:00)
[2022-01-05] MEDS: oxyCODONE 5MG TAB PO PRN ×2 (02:51→15:02)
[2022-01-05] MEDS: LR 1,000 ML IV SCH ×3 (02:52→18:13)
[2022-01-05] MEDS ORDERED: TAMSULOSIN 0.4 MG CAP PO SCH (10:00)
[2022-01-05] MEDS: CYCLOBENZAPRINE 5MG TABLET PO SCH ×2 (10:24→18:10)
[2022-01-05] MEDS ORDERED: oxyCODONE 5MG TAB As Ordered ONE (15:00)
[2022-01-05 18:08] LABS: BASO % 0.1 % (0.0-1.0); EOS % 0.1 % (0.0-3.0); HEMATOCRIT 26.3 % (36.0-47.0); HEMOGLOBIN 9.1 g/dl (12.0-15.5); LYMPH # 0.6 10^3/uL (1.5-5.0); LYMPH % 3.1 % (24.0-44.0); MEAN CORPUSCULAR HEMOGLOBIN 33.1 pg (27.0-33.0); MEAN CORPUSCULAR HGB CONC 34.6 g/dl (32.0-36.5); MEAN CORPUSCULAR VOLUME 95.6 fl (80.0-96.0); MONO % 5.2 % (2.0-8.0); NEUTROPHILS # 17.2 10^3/uL (1.5-8.5); NEUTROPHILS % 89.9 % (36.0-66.0); PLATELET COUNT, AUTOMATED 204 10^3/uL (150-450); RED BLOOD COUNT 2.75 10^6/uL (4.00-5.40); WHITE BLOOD COUNT 19.1 10^3/uL (4.0-10.0)
[2022-01-05 18:53] LABS: BLOOD UREA NITROGEN 6 MG/DL (7-18); CARBON DIOXIDE LEVEL 20 MEQ/L (21-32); CHLORIDE LEVEL 107 MEQ/L (98-107); CREATININE FOR GFR 0.74 MG/DL (0.55-1.30); GLOMERULAR FILTRATION RATE > 60.0 (>60); GLUCOSE, FASTING 111 MG/DL (70-100); POTASSIUM SERUM 3.3 MEQ/L (3.5-5.1); SODIUM LEVEL 134 MEQ/L (136-145)
[2022-01-05 18:54] LABS: ALBUMIN 2.2 GM/DL (3.2-5.2); ALT/SGPT 10 U/L (12-78); BILIRUBIN,TOTAL 0.2 MG/DL (0.2-1.0); CALCIUM LEVEL 7.8 MG/DL (8.5-10.1); TOTAL PROTEIN 4.9 GM/DL (6.4-8.2)
[2022-01-05] MEDS: cefTRIAXone SOD 1 GM in D5W MINI-BAG PLUS 50 ML IV SCH (21:35)
[2022-01-06] VITALS (9 sets, daily range): BP systolic 88–107; BP diastolic 50–58
[2022-01-06] MEDS: LR 1,000 ML IV SCH ×3 (00:30→18:17)
[2022-01-06] MEDS: ACETAMINOPHEN 500 MG TAB PO SCH ×4 (00:30→18:18)
[2022-01-06] MEDS: CYCLOBENZAPRINE 5MG TABLET PO SCH ×3 (02:09→18:17)
[2022-01-06] MEDS ORDERED: oxyCODONE 5MG TAB As Ordered ONE ×2 (02:19→02:22)
[2022-01-06] MEDS: oxyCODONE 5MG TAB PO PRN ×2 (02:21→13:41)
[2022-01-06] MEDS ORDERED: TOPA100T12 PO (07:58)
[2022-01-06] MEDS: TOPIRAMATE (TopAMAX) 100 MG TAB PO SCH ×2 (09:14→20:31)
[2022-01-06] MEDS: FERROUS SULFATE 325MG TAB PO SCH (09:14)
[2022-01-06 18:29] LABS: HEMATOCRIT 23.3 % (36.0-47.0); MEAN CORPUSCULAR HEMOGLOBIN 32.5 pg (27.0-33.0); MEAN CORPUSCULAR HGB CONC 34.3 g/dl (32.0-36.5); MEAN CORPUSCULAR VOLUME 94.7 fl (80.0-96.0); PLATELET COUNT, AUTOMATED 195 10^3/uL (150-450); RED BLOOD COUNT 2.46 10^6/uL (4.00-5.40); WHITE BLOOD COUNT 14.7 10^3/uL (4.0-10.0)
[2022-01-06] MEDS: cefTRIAXone SOD 1 GM in D5W MINI-BAG PLUS 50 ML IV SCH (20:31)
[2022-01-07] MEDS: ACETAMINOPHEN 500 MG TAB PO SCH ×2 (01:16→06:31)
[2022-01-07] MEDS: CYCLOBENZAPRINE 5MG TABLET PO SCH ×2 (01:16→10:11)
[2022-01-07 01:30] VITALS: BP 97/55
[2022-01-07] MEDS: LR 1,000 ML IV SCH ×2 (02:10→11:45)
[2022-01-07 06:00] VITALS: BP 99/60
[2022-01-07] MEDS: FERROUS SULFATE 325MG TAB PO SCH (08:55)
[2022-01-07] MEDS: TOPIRAMATE (TopAMAX) 100 MG TAB PO SCH (08:56)
[2022-01-07 10:00] VITALS: BP 97/54
[2022-01-07] MEDS ORDERED: FIORICET TAB PO ONE (12:15)
== END 2022-01-07 13:25 | disposition home or self-care (01) ==
LOC: M LDO 17:30 → M OBS 01-06 09:30 → M LDO 01-07 13:25
PROVIDERS: ATTEND Obstetrics & Gynecology
DX: O23.02 Infections of kidney in pregnancy, second trimester (principal); N10 Acute pyelonephritis; O26.892 Other specified pregnancy related conditions, second trimester; R25.2 Cramp and spasm; M54.9 Dorsalgia, unspecified; O99.842 Bariatric surgery status complicating pregnancy, second trimester; O99.352 Diseases of the nervous system complicating pregnancy, second trimester; G43.909 Migraine, unspecified, not intractable, without status migrainosus; O09.522 Supervision of elderly multigravida, second trimester; Z3A.27 27 weeks gestation of pregnancy; Z79.899 Other long term (current) drug therapy
CPT/HCPCS: 36415; 59025; 76775; 80053; 81000; 85025; 85027; 87088; 87186; 87635; G0463; J0696; J2270

== ENCOUNTER → 2022-02-10 | Outpatient (CLI) | payer OTHER ==
[~2022-02-10] MED LIST changes: +SING4CHW9 PO; +TOPA100T12 PO; +TOPA200T7 PO
== END ==
LOC: M RAD 11:10
PROVIDERS: ATTEND Obstetrics & Gynecology
DX: O09.523 Supervision of elderly multigravida, third trimester (principal); Z3A.33 33 weeks gestation of pregnancy

== ENCOUNTER 2022-03-06 11:28 | Outpatient (CLI) | payer OTHER ==
[~2022-03-06] VITALS: Ht 162.6 cm; Wt 78.0 kg
[2022-03-06 11:51] VITALS: BP 100/51
[2022-03-06] MEDS ORDERED: FERR325T3 PO (12:16)
[2022-03-06] MEDS ORDERED: MAGN400C2 PO (12:16)
[2022-03-06] MEDS ORDERED: COLA100C5 PO (12:16)
[2022-03-06] MEDS ORDERED: NITR-67 PO (12:16)
[2022-03-06 13:01] LABS: BASO % 0.2 % (0.0-1.0); EOS % 0.1 % (0.0-3.0); HEMATOCRIT 28.2 % (36.0-47.0); HEMOGLOBIN 9.8 g/dl (12.0-15.5); MEAN CORPUSCULAR HEMOGLOBIN 32.2 pg (27.0-33.0); MEAN CORPUSCULAR HGB CONC 34.8 g/dl (32.0-36.5); MEAN CORPUSCULAR VOLUME 92.8 fl (80.0-96.0); MONO # 1.1 10^3/uL (0.0-0.8); MONO % 8.2 % (2.0-8.0); NEUTROPHILS # 11.6 10^3/uL (1.5-8.5); NEUTROPHILS % 83.9 % (36.0-66.0); PLATELET COUNT, AUTOMATED 229 10^3/uL (150-450); RED BLOOD COUNT 3.04 10^6/uL (4.00-5.40); WHITE BLOOD COUNT 13.9 10^3/uL (4.0-10.0)
[2022-03-06 13:24] LABS: APPEARANCE, URINE MANUAL HAZY (CLEAR); COLOR, URINE MANUAL LT YELLOW (YELLOW)
[2022-03-06 13:26] LABS: SPECIFIC GRAVITY,URINE MANUAL 1.005 (1.002-1.035)
[2022-03-06 13:27] LABS: BILIRUBIN, URINE MANUAL NEGATIVE (NEGATIVE); BLOOD URINE MANUAL POSITIVE (NEGATIVE); GLUCOSE, URINE (UA) MANUAL NEGATIVE (NEGATIVE); KETONE, URINE MANUAL 2+ mg/dL (NEGATIVE); LEUKOCYTE ESTERASE, URINE MAN POSITIVE (NEGATIVE); NITRITE, URINE MANUAL NEGATIVE (NEGATIVE); PROTEIN, URINE MANUAL NEGATIVE (NEGATIVE); UROBILINOGEN, URINE MANUAL NORMAL (NORMAL)
[2022-03-06 13:41] LABS: BACTERIA, URINE MOD AMOUNT; HYALINE CAST, URINE NONE SEEN /lpf (0-1); SQUAMOUS EPITHELIAL CELL URINE MOD AMOUNT /hpf (SMALL AMT)
[2022-03-06] MEDS ORDERED: PIPERACILLIN/TAZOBACTAM SOD 3.375 GM in D5W MINI-BAG PLUS 50 ML IV ONE (14:00)
[2022-03-06 14:57] VITALS: BP 109/59
[2022-03-06] MEDS ORDERED: ACETAMINOPHEN 500 MG TAB PO ONE (15:05)
== END 2022-03-06 18:15 | disposition home or self-care (01) ==
LOC: M LDO 11:28
PROVIDERS: ATTEND Advanced Practice Midwife
DX: O23.03 Infections of kidney in pregnancy, third trimester (principal); N12 Tubulo-interstitial nephritis, not specified as acute or chronic; Z3A.36 36 weeks gestation of pregnancy; O09.523 Supervision of elderly multigravida, third trimester
CPT/HCPCS: 36415; 59025; 81000; 85025; 87086; 96365; G0463; J2543

== ENCOUNTER 2022-03-10 12:24 | Outpatient (CLI) | payer OTHER ==
[~2022-03-10] VITALS: Ht 162.6 cm; Wt 78.5 kg
[~2022-03-10 12:24] MED LIST changes: +COLA100C5 PO; +FERR325T3 PO; +MAGN400C2 PO; +NITR-67 PO
[2022-03-10 12:46] VITALS: BP 106/57
[2022-03-10] MEDS ORDERED: ONE-1TAB PO (12:58)
[2022-03-10] MEDS ORDERED: TOPA50TA8 PO (12:58)
== END 2022-03-10 13:30 | disposition home or self-care (01) ==
LOC: M LDO 12:24
PROVIDERS: ATTEND Advanced Practice Midwife
DX: O36.8330 Maternal care for abnormalities of the fetal heart rate or rhythm, third trimester, not applicable or unspecified (principal); Z3A.37 37 weeks gestation of pregnancy; O99.843 Bariatric surgery status complicating pregnancy, third trimester; O09.523 Supervision of elderly multigravida, third trimester; Z88.6 Allergy status to analgesic agent; Z79.899 Other long term (current) drug therapy
CPT/HCPCS: 59025; G0378; G0463

== ENCOUNTER 2022-03-23 07:27 | Inpatient (IN) | payer OTHER ==
[2022-03-23] VITALS (40 sets, daily range): BP systolic 98–152; BP diastolic 55–84
[~2022-03-23] VITALS: Ht 162.6 cm; Wt 78.5 kg
[~2022-03-23 07:27] MED LIST changes: +TOPA50TA8 PO
[2022-03-23] MEDS ORDERED: METHYLERGONOVINE MALEATE 0.2 MG/ML VIAL (J2210) IM PRN (08:40)
[2022-03-23] MEDS ORDERED: TRANEXAMIC ACID INJection 1,000 MG in NS 100 ML IV PRN (08:40)
[2022-03-23] MEDS ORDERED: LIDOCAINE 1% MDV 20ML VIAL INFIL PRN (08:40)
[2022-03-23] MEDS ORDERED: OXYTOCIN INJ 10 UNITS/ML VIAL (J2590) IV PRN (08:40)
[2022-03-23] MEDS ORDERED: OXYTOCIN DRIP 30 UNITS in IV 1 EA IV PRN ×6 (08:40)
[2022-03-23] MEDS ORDERED: OXYTOCIN INJ 10 UNITS/ML VIAL (J2590) IM PRN (08:40)
[2022-03-23] MEDS ORDERED: CARBOPROST TROMETHAMINE 250 MCG/ML AMP IM PRN (08:40)
[2022-03-23] MEDS ORDERED: OXYTOCIN DRIP 30 UNITS in IV 1 EA IV SCH (08:40)
[2022-03-23 09:18] LABS: HEMATOCRIT 32.4 % (36.0-47.0); MEAN CORPUSCULAR HEMOGLOBIN 31.4 pg (27.0-33.0); MEAN CORPUSCULAR VOLUME 92.6 fl (80.0-96.0); PLATELET COUNT, AUTOMATED 364 10^3/uL (150-450); WHITE BLOOD COUNT 7.9 10^3/uL (4.0-10.0)
[2022-03-23] MEDS ORDERED: ASCO500T PO (09:27)
[2022-03-23] MEDS ORDERED: FERR325T3 PO (09:27)
[2022-03-23] MEDS ORDERED: NITR100C2 PO (09:27)
[2022-03-23] MEDS ORDERED: D3 +TAB PO (09:27)
[2022-03-23] MEDS ORDERED: HOME MED LIST COMPLETE! XX SCH (09:30)
[2022-03-23] MEDS: LR 1,000 ML IV SCH ×2 (10:53→16:26)
[2022-03-23] MEDS ORDERED: BUTORPHANOL 2 MG/ML INJ (J0595) IV ONE (11:50)
[2022-03-23] MEDS ORDERED: PROMETHAZINE 25MG/ML 1ML VIAL IV ONE (11:50)
[2022-03-23] MEDS: OXYMETAZOLINE 0.05% NASAL SPRAY (AFRIN) SCH ×2 (14:47→20:25)
[2022-03-23] MEDS ORDERED: ONDANSETRON 4MG 2ML VIAL IV PRN ×2 (16:35→21:55)
[2022-03-23] MEDS ORDERED: EPIDURAL/PCA KEYS XX PRN (16:35)
[2022-03-23] MEDS ORDERED: diphenhydrAMINE 50MG/ML VIAL (J1200) IV PRN (16:35)
[2022-03-23] MEDS ORDERED: ePHEDrine SULFATE 25 MG/5 ML(5MG/ML) SYRINGE IVP PRN (16:35)
[2022-03-23] MEDS ORDERED: NALOXONE INJ 0.4MG/1ML VIAL (J2310 PER 1MG) IV PRN (16:35)
[2022-03-23] MEDS ORDERED: LR 500 ML IV PRN (16:35)
[2022-03-23] MEDS: FENTANYL/ROPIVACAINE/NACL BAG 100 ML EPIDURAL SCH (17:40)
[2022-03-23] MEDS ORDERED: ceFAZolin SOD 2 GM in IV 1 EA IV ONE (20:15)
[2022-03-23] MEDS ORDERED: ACETAMINOPHEN 650 MG SUPP PR ONE (20:15)
[2022-03-23] MEDS ORDERED: BICITRA 30ML SOLN UDC PO ONE (20:15)
[2022-03-23] MEDS ORDERED: ceFAZolin 1GM VIAL (J0690 PER 500MG) As Ordered ONE (20:30)
[2022-03-23] MEDS ORDERED: MORPHINE PRES-FREE INJ 10 MG/10 ML VIAL As Ordered ONE (20:55)
[2022-03-23 21:28] LABS: CORD GAS ABE V -4.7; CORD GAS HCO3 V 20.9 MEQ/L; CORD GAS PCO2 V 40.3 mmHg; CORD GAS PH V 7.332 UNITS; CORD GAS PO2 V 27.9 mmHg; CORD GAS SBC V 19.9 MEQ/L; CORD GAS TCO2 V 22.1 MEQ/L
[2022-03-23] MEDS ORDERED: propofoL 200 MG/20 ML VIAL As Ordered ONE (21:28)
[2022-03-23] MEDS ORDERED: LIDOCAINE 2% W/EPINEPHRINE 20ML VIAL **PRES FREE As Ordered ONE (21:28)
[2022-03-23] MEDS ORDERED: dexameTHASONE 4 MG/ML 1ML VIAL (J1100 PER 1MG) As Ordered ONE (21:28)
[2022-03-23] MEDS ORDERED: ONDANSETRON 4MG 2ML VIAL As Ordered ONE (21:28)
[2022-03-23] MEDS ORDERED: ACETAMINOPHEN 1000MG 100ML IV BTL (OFIRMEV) (J0131 PER 10MG) As Ordered ONE (21:28)
[2022-03-23] MEDS ORDERED: SUCCINYLCHOLINE 100 MG/5 ML SYRINGE (J0330) As Ordered ONE (21:28)
[2022-03-23] MEDS ORDERED: OXYTOCIN INJ 10 UNITS/ML VIAL (J2590) As Ordered ONE (21:30)
[2022-03-23] MEDS ORDERED: RHOGAM 300 MCG (1500 IU) INJ (J2790) IM SCH (21:40)
[2022-03-23] MEDS ORDERED: MOM 30ML SUSPENSION UDC PO PRN (21:40)
[2022-03-23] MEDS ORDERED: oxyCODONE 5MG TAB PO PRN ×2 (21:40→21:55)
[2022-03-23] MEDS ORDERED: LR 1,000 ML IV SCH (21:55)
[2022-03-23] MEDS ORDERED: METOCLOPRAMIDE INJ 10MG/2ML VIAL (J2765 PER 1) IV PRN (21:55)
[2022-03-23] MEDS ORDERED: fentaNYL 100 MCG/2 ML INJECTION IV PRN (21:55)
[2022-03-23] MEDS ORDERED: HYDROmorphone HCL 2MG/ML 1ML VIAL As Ordered ONE (21:56)
[2022-03-23] MEDS: KETOROLAC 30 MG/ML 1ML VIAL IV SCH (22:17)
[2022-03-24] VITALS (8 sets, daily range): BP systolic 108–135; BP diastolic 61–72
[2022-03-24] MEDS: LR 1,000 ML IV SCH ×2 (00:40→02:43)
[2022-03-24] MEDS: FENTANYL/ROPIVACAINE/NACL BAG 100 ML EPIDURAL SCH (02:35)
[2022-03-24] MEDS: KETOROLAC 30 MG/ML 1ML VIAL IV SCH ×3 (04:09→16:04)
[2022-03-24 07:58] LABS: HEMATOCRIT 25.1 % (36.0-47.0); MEAN CORPUSCULAR HEMOGLOBIN 31.9 pg (27.0-33.0); MEAN CORPUSCULAR HGB CONC 34.7 g/dl (32.0-36.5); MEAN CORPUSCULAR VOLUME 91.9 fl (80.0-96.0); PLATELET COUNT, AUTOMATED 293 10^3/uL (150-450); RED BLOOD COUNT 2.73 10^6/uL (4.00-5.40); WHITE BLOOD COUNT 15.4 10^3/uL (4.0-10.0)
[2022-03-24 08:45] LABS: HEMOGLOBIN 8.7 g/dl (12.0-15.5)
[2022-03-24] MEDS: OXYMETAZOLINE 0.05% NASAL SPRAY (AFRIN) SCH ×2 (09:00→21:00)
[2022-03-24] MEDS: DOCUSATE SODIUM 100MG CAPSULE PO SCH ×2 (09:33→21:00)
[2022-03-24] MEDS: PRENATAL VITAMINS CHEWABLE TABLET PO SCH (09:33)
[2022-03-24] MEDS: oxyCODONE 5MG TAB PO PRN ×2 (15:13→21:19)
[2022-03-25] MEDS: SIMETHICONE 80MG CHEW TAB PO PRN ×3 (01:21→16:59)
[2022-03-25 03:15] VITALS: BP 129/83
[2022-03-25] MEDS: oxyCODONE 5MG TAB PO PRN ×4 (03:23→22:43)
[2022-03-25 06:00] VITALS: BP 107/57
[2022-03-25] MEDS: PRENATAL VITAMINS CHEWABLE TABLET PO SCH (08:45)
[2022-03-25] MEDS: ACETAMINOPHEN 500 MG TAB PO PRN ×2 (08:45→18:44)
[2022-03-25] MEDS: OXYMETAZOLINE 0.05% NASAL SPRAY (AFRIN) SCH ×2 (09:00→21:00)
[2022-03-25] MEDS ORDERED: MEASLES,MUMPS,RUBELLA VACCINE INJ (MMR-II) (90707) SC.IMMUN ONE (09:00)
[2022-03-25] MEDS: DOCUSATE SODIUM 100MG CAPSULE PO SCH ×2 (09:00→21:00)
[2022-03-25 10:00] VITALS: BP 112/67
[2022-03-25 14:00] VITALS: BP 142/71
[2022-03-25 18:00] VITALS: BP 136/64
[2022-03-25 22:00] VITALS: BP 137/73
[2022-03-26] MEDS: ACETAMINOPHEN 500 MG TAB PO PRN ×2 (01:22→08:48)
[2022-03-26] MEDS: SIMETHICONE 80MG CHEW TAB PO PRN (01:22)
[2022-03-26] MEDS: oxyCODONE 5MG TAB PO PRN ×2 (04:48→10:45)
[2022-03-26 06:00] VITALS: BP 128/64
[2022-03-26] MEDS: PRENATAL VITAMINS CHEWABLE TABLET PO SCH (08:33)
[2022-03-26] MEDS: DOCUSATE SODIUM 100MG CAPSULE PO SCH (08:33)
[2022-03-26] MEDS: OXYMETAZOLINE 0.05% NASAL SPRAY (AFRIN) SCH (08:33)
[2022-03-26 08:50] VITALS: BP 128/64
== END 2022-03-26 11:40 | disposition home or self-care (01) | DRG 773 ==
LOC: M LDI 07:27 → M OBS 23:01
PROVIDERS: ADMIT Advanced Practice Midwife; ATTEND Obstetrics & Gynecology
PROC: 3E033VJ Introduction of Other Hormone into Peripheral Vein, Percutaneous Approach (ICD-10-PCS; 2022-03-23)
PROC: 10907ZC Drainage of Amniotic Fluid, Therapeutic from Products of Conception, Via Natural or Artificial Opening (ICD-10-PCS; 2022-03-23)
PROC: 10D00Z1 Extraction of Products of Conception, Low, Open Approach (ICD-10-PCS; principal; 2022-03-23 21:18)
DX: O99.844 Bariatric surgery status complicating childbirth (principal); Z3A.39 39 weeks gestation of pregnancy; O09.523 Supervision of elderly multigravida, third trimester; Z87.891 Personal history of nicotine dependence; Z88.6 Allergy status to analgesic agent; Z88.8 Allergy status to other drugs, medicaments and biological substances; Z79.899 Other long term (current) drug therapy; O32.1XX0 Maternal care for breech presentation, not applicable or unspecified; Z37.0 Single live birth

== ENCOUNTER → 2022-06-16 | Outpatient (CLI) | payer OTHER ==
[~2022-06-16] MED LIST changes: +ASCO500T PO; +D3 +TAB PO; +NITR100C2 PO
== END ==
LOC: M RAD 15:01
PROVIDERS: ATTEND Advanced Practice Midwife
DX: R10.9 Unspecified abdominal pain (principal); Z97.5 Presence of (intrauterine) contraceptive device

== ENCOUNTER 2023-05-17 07:45 | Emergency (ER) | payer OTHER, MEDICAID ==
[~2023-05-17] VITALS: Ht 162.6 cm; Wt 63.6 kg
[~2023-05-17 07:45] MED LIST changes: +CYAN-1 PO; -CYAN100050 PO; +MONT4TAB2 PO; -SING4CHW9 PO
[2023-05-17 08:01] VITALS: BP 96/55; TEMP 96.2; O2SAT 100
[2023-05-17 08:59] LABS: BASO % 0.6 % (0.0-1.0); EOS # 0.1 10^3/uL (0.0-0.5); EOS % 1.8 % (0.0-3.0); HEMATOCRIT 34.9 % (36.0-47.0); HEMOGLOBIN 12.1 g/dl (12.0-15.5); LYMPH % 38.7 % (24.0-44.0); MEAN CORPUSCULAR HEMOGLOBIN 31.3 pg (27.0-33.0); MEAN CORPUSCULAR HGB CONC 34.7 g/dl (32.0-36.5); MEAN CORPUSCULAR VOLUME 90.4 fl (80.0-96.0); MONO # 0.4 10^3/uL (0.0-0.8); MONO % 7.3 % (2.0-8.0); NEUTROPHILS # 2.6 10^3/uL (1.5-8.5); NEUTROPHILS % 51.4 % (36.0-66.0); PLATELET COUNT, AUTOMATED 289 10^3/uL (150-450); RED BLOOD COUNT 3.86 10^6/uL (4.00-5.40); WHITE BLOOD COUNT 5.1 10^3/uL (4.0-10.0)
[2023-05-17] MEDS ORDERED: ISOVUE-370 76% 100ML VIAL As Ordered ONE (09:24)
== END 2023-05-17 09:38 | disposition left against medical advice (07) ==
LOC: M ED 07:45
DX: R50.9 Fever, unspecified (principal); E11.9 Type 2 diabetes mellitus without complications; Z98.84 Bariatric surgery status; Z88.6 Allergy status to analgesic agent; Z88.8 Allergy status to other drugs, medicaments and biological substances; Z79.899 Other long term (current) drug therapy

== ENCOUNTER 2024-11-27 16:49 | Emergency (ER) | payer OTHER, MEDICAID ==
[~2024-11-27] VITALS: Ht 162.6 cm; Wt 78.8 kg
[~2024-11-27 16:49] MED LIST changes: -ADV500INH INH; +ADVA1AER10 INH; -CYCL5TAB PO; +CYCL5TAB4 PO; -FEXO-117 PO; +FEXO-193 PO; +MULT18TA PO; -ONE-1TAB PO
[2024-11-27 17:52] LABS: KETONE, URINE AUTO RFX NEGATIVE (NEGATIVE); LEUKOCYTE ESTERASE UR AUTO RFX NEGATIVE (NEGATIVE); NITRITE, URINE AUTO RFX NEGATIVE (NEGATIVE); RBC, URINE AUTO RFX 7 /HPF (0-3); SQUAM EPITHELIAL CELL UR AURFX 2 /HPF (0-6); WBC, URINE AUTO RFX 1 /HPF (0-3)
[2024-11-27 22:10] LABS: BASO # 0.1 10^3/uL (0.0-0.2); BASO % 0.6 % (0.0-1.0); EOS # 0.1 10^3/uL (0.0-0.5); EOS % 1.4 % (0.0-3.0); LYMPH # 2.7 10^3/uL (1.5-5.0); LYMPH % 31.1 % (24.0-44.0); MONO # 0.4 10^3/uL (0.0-0.8); MONO % 5.1 % (2.0-8.0); NEUTROPHILS # 5.4 10^3/uL (1.5-8.5); NEUTROPHILS % 61.6 % (36.0-66.0); PLATELET COUNT, AUTOMATED 330 10^3/uL (150-450)
[2024-11-27 22:39] LABS: CALCIUM LEVEL 9.1 MG/DL (8.5-10.1); CARBON DIOXIDE LEVEL 21 MMOL/L (20-31); CHLORIDE LEVEL 110 MMOL/L (98-107); CREATININE FOR GFR 0.75 MG/DL (0.55-1.30); GLOMERULAR FILTRATION RATE > 90.0 (>58); POTASSIUM SERUM 3.7 MMOL/L (3.5-5.1); SODIUM LEVEL 145 MMOL/L (136-145)
[2024-11-27 22:44] LABS: HCG, SERUM QUALITATIVE NEGATIVE (NEGATIVE)
[2024-11-28 03:00] VITALS: BP 114/79; O2SAT 99
[2024-11-28] MEDS ORDERED: ONDA-282 PO (03:30)
[2024-11-28] MEDS ORDERED: PERC5TAB12 PO (03:30)
[2024-11-28 03:44] VITALS: TEMP 97.2
== END 2024-11-28 03:48 | disposition home or self-care (01) ==
LOC: M ED 16:49
DX: R10.9 Unspecified abdominal pain (principal); E11.9 Type 2 diabetes mellitus without complications; Z98.84 Bariatric surgery status; Z88.8 Allergy status to other drugs, medicaments and biological substances; Z79.899 Other long term (current) drug therapy; Z79.83 Long term (current) use of bisphosphonates